=== PATIENT | male | born 1960 ===

== ENCOUNTER 2024-06-27 12:12 | Outpatient (AMB) | payer MEDICARE, MEDICAID, SELFPAY ==
--- NOTE | 2024-06-27 12:19 | A.OFFPC_ITS ---
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 Intake Note: New patient visit User Experience Team Lead Required: No Allergies No Known Allergies Allergy (Verified 06/27/24 12:20) Tobacco use date assessed: 06/27/24 Fall risk assessment: 2 + Falls in past year Last assessed Fall Risk: 06/27/24 Dental Screening Dental Screen Date: 06/27/24 Did you have a dental visit in the last 12 months?: No Did you have a dental problem in the last 6 months where you did not have access to dental care?: Yes Was dental information given to patient?: Patient declined (Will find one on his own) HPI HPI Comments History of Present Illness Details The patient is a 64-year-old male with a past medical history of prosthetic adenocarcinoma, complicated pancreatitis status post complete pancreatectomy, diabetes, CKD, nephrolithiasis, hypertension, hyperlipidemia, GERD, DIONICIO, MCI presenting to [facility]. Transfer from PCP in [place]. Towards the end of the visit very disappointed that Son[facility] is not on [facility] EHR- this was the first questions he asked when registering and he was told yes. He may change to an [facility] facility Urology: Prostate cancer. Recent 04/2024 biopsy c/w adenocarcinoma. This was at [facility]. He does not know what he wants as far as treatment or where he wants to follow with urology/oncology. When imaging performed for work up-showed that his large abdominal hernia is complicated Nephrology: CKD stage 4. History of dialysis dependent ATN following severe necrotizing pancreatitis in 2013. Recurrent nephrolithiasis. On finerenone, RYLAN. Needs local compliance examiner Endocrine: Insulin dependent since 1014-current regimen Lantus 32 units BID, humalog 22, 22, 24 +150 sliding. On farxiga 10mg daily. Status post pancreatectomy. Free style jazzmine 2. CV: htn, hld. On lisinopril 20 mg twice daily, atorvastatin 40mg daily. ROS see HPI PHYSICAL EXAM: GENERAL: Alert and oriented x 3. NAD EYES: EOMI. Anicteric. HENT: Moist mucous membranes. No scleral icterus. LUNGS: Clear to auscultation bilaterally. CARDIOVASCULAR: Regular rate and rhythm. ABDOMEN: +bs. Large abdominal hernia EXTREMITIES: No edema. Non-tender. SKIN: No rashes or lesions. Warm. NEUROLOGIC: No focal neurological deficits. CN II-XII grossly intact PSYCHIATRIC: Frustrated [facility] Social History Housing: Condominium Alcohol intake: never Patient Tobacco Use Status: Never used Tobacco e-Cigarette/Vaping Use: Never Used Second Hand Smoke Exposure: No service: No Current occupational status: unemployed Cognitive needs: No Hearing needs: No Vision needs: No Questionnaire Thrive Questionnaire I am a: Patient What is your living situation today?: I have a steady place to live Within the past 12 months, did the food you bought not last and you didn't have the money to get more?: I choose not to answer this question Within the past 12 months, did you worry whether your food would run out before you got money to buy more?: I choose not to answer this question Do you have trouble paying for medicines?: I choose not to answer this question Do you have trouble getting transportation to medical appointments?: I choose not to answer this question Do you have trouble paying your heating and electricity bill?: I choose not to answer this question Do you have trouble taking care of your child, family member or friend?: I choose not to answer this question Do you have trouble with day-to-day activities such as bathing, preparing meals, shopping, managing finances, etc.?: I choose not to answer this question Are you currently unemployed and looking for a job?: I choose not to answer this question Are you interested in more education?: I choose not to answer this question Please select the resources that you would like help with: None Currently or been in a relationship where the following occur: I choose not to answer THRIVE Score: 0 AUDIT C Alcohol Use Questionnaire (AUDIT-C) 1. How often do you have a drink containing alcohol?: Never Total Score: 0 NATALIA-7 AMB Questionnaire NATALIA-7 Feeling nervous, anxious, or on edge: 0 = Not at all Not being able to stop or control worryin = Not at all Worrying too much about different things: 0 = Not at all Trouble relaxin = Not at all Being so restless that it is hard to sit still: 0 = Not at all Becoming easily annoyed or irritable: 0 = Not at all Feeling afraid as if something awful might happen: 0 = Not at all Total NATALIA-7 score (0-4 normal; 5-9 mild; 10-14 moderate; 15-21 severe): 0 Source: Developed by Drs. Joe Terrell, Tiffany Phelan, Daquan Fabian and colleagues, with an educational natasha from [employer]. Physical exam (Primary Care) Vital Signs: Last Vital Signs Pulse 63 06/27/24 12:24 BP 128/74 06/27/24 12:24 Pulse Ox 98 06/27/24 12:24 Oxygen Delivery Method Room Air 06/27/24 12:24 BMI result Body Mass Index 34.5 Tobacco/Smoking Status: Tobacco use Status Tobacco use date assessed 06/27/24 06/27/24 12:27 Patient Tobacco Use Status Never used Tobacco 06/27/24 12:27 e-Cigarette/Vaping Use Never Used 06/27/24 12:27 Currently or been in a relationship where the following occur: I choose not to answer Coding Level of Care Code New Pt Level 5 (29792) Diagnoses Encounter to establish care Z76.89 Prostate cancer C61 CKD (chronic kidney disease) stage 4, GFR 15-29 ml/min N18.4 Diabetes mellitus with insulin therapy E11.9; Z79.4 Time Spent (min) 65 Assessment & Plan Assessment & Plan (1) Encounter to establish care: Code(s): Z76.89 - Persons encountering health services in other specified circumstances Category: Medical Plan: 64 y/o to establish care. Past medical, surgical, social history reviewed. Long visit. He has been very frustated by healthcare system out in [place]. Then after going through his history etc turns out that his priority when choosing a practice is that it be on the [facility] system. Has new prostate cancer diagnosis. Needs urology Has CKD stage 4 needs nephrology (2) Prostate cancer: Code(s): C61 - Malignant neoplasm of prostate Category: Medical Plan: see above (3) CKD (chronic kidney disease) stage 4, GFR 15-29 ml/min: Code(s): N18.4 - Chronic kidney disease, stage 4 (severe) Category: Medical Plan: see above (4) Diabetes mellitus with insulin therapy: Code(s): E11.9 - Type 2 diabetes mellitus without complications; Z79.4 - terminal carman (current) use of insulin Category: Medical Plan: well controlled Continue current medications Orders: Orders Hemoglobin A1c 06/27/24 Z86.39 - Personal history of other endocrine, nutritional and metabolic disease Comprehensive Met. Panel 06/27/24 Z86.39 - Personal history of other endocrine, nutritional and metabolic disease Referrals Nephrology Referral N18.4 - Chronic kidney disease, stage 4 (severe) Urology Referral C61 - Malignant neoplasm of prostate General Surgery Referral K46.9 - Unspecified abdominal hernia without obstruction or gangrene Medications: New Lantus Solostar U-100 Insulin (insulin glargine) 32 units (0.32 mL) subcut BID 58 mL 3RF 90 days NS Z86.39 - Personal history of other endocrine, nutritional and metabolic disease, 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 Humalog KwikPen Insulin (insulin lispro) 22 units SQ before breakfast, lunch, 24 units SQ before dinner plus sliding scale 1 sliding scale dose subcut USEASDIRECTD 45 mL 3RF NS Z86.39 - Personal history of other endocrine, nutritional and metabolic disease, 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
[2024-06-27 12:24] VITALS: BP 128/74; PULSE 63; O2SAT 98; BMI 34.5
== END 2024-06-27 13:40 | disposition home or self-care (01) ==
PROVIDERS: Visit Provider Internal Medicine
DX: E11.9 Type 2 diabetes mellitus without complications (principal); C61 Malignant neoplasm of prostate; N18.4 Chronic kidney disease, stage 4 (severe); Z79.4 Long term (current) use of insulin; Z76.89 Persons encountering health services in other specified circumstances

== ENCOUNTER → 2024-06-27 12:12 | Outpatient (BNVA) | payer MEDICARE, SELFPAY | PROVIDERS: Visit Provider Internal Medicine | DX: Z76.89 Persons encountering health services in other specified circumstances (principal); I12.9 Hypertensive chronic kidney disease with stage 1 through stage 4 chronic kidney disease, or unspecified chronic kidney disease; E11.22 Type 2 diabetes mellitus with diabetic chronic kidney disease; N18.4 Chronic kidney disease, stage 4 (severe); C61 Malignant neoplasm of prostate; Z79.4 Long term (current) use of insulin; Z86.39 Personal history of other endocrine, nutritional and metabolic disease; Z90.410 Acquired total absence of pancreas | CPT/HCPCS: 99202 ==